=== PATIENT | male | born 1995 | race Caucasian/White ===

== ENCOUNTER 2018-09-27 04:10 | Emergency (ER) | payer OTHER ==
[2018-09-27] MEDS: KETOROLAC 30 MG INJ IM (04:42)
== END 2018-09-27 06:26 | disposition home or self-care (01) ==
LOC: FTE 06:26
DX: S80.11XA Contusion of right lower leg, initial encounter (principal); S20.222A Contusion of left back wall of thorax, initial encounter; W20.8XXA Other cause of strike by thrown, projected or falling object, initial encounter; Y92.89 Other specified places as the place of occurrence of the external cause; Z87.891 Personal history of nicotine dependence
CPT/HCPCS: 72100; 73550; 93971; 96372; 99285-25

== ENCOUNTER 2018-10-27 15:40 | Emergency (ER) | payer OTHER ==
[2018-10-27] MEDS: OXYCODONE/ACETAMINOPHEN (5/325) TAB PO (19:48)
[2018-10-27] MEDS: KETOROLAC 60 MG INJ IM (19:49)
== END 2018-10-27 23:00 | disposition home or self-care (01) ==
LOC: FTE 15:40
DX: S22.050A Wedge compression fracture of T5-T6 vertebra, initial encounter for closed fracture (principal); F17.210 Nicotine dependence, cigarettes, uncomplicated; X58.XXXA Exposure to other specified factors, initial encounter; Y92.89 Other specified places as the place of occurrence of the external cause
CPT/HCPCS: 72128; 72131; 96372; 99285-25